=== PATIENT | male | born 1965 | race Hispanic/Latino ===

== ENCOUNTER 2018-11-24 12:42 | Inpatient (IN) | payer SELFPAY ==
[~2018-11-24] VITALS: Ht 170.2 cm; Wt 83.7 kg
[2018-11-24] VITALS (7 sets, daily range): BP systolic 124–152; BP diastolic 81–97
[2018-11-24] MEDS ORDERED: PANTOPRAZOLE 40 MG 10ML VIAL IV ONE (12:47)
[2018-11-24] MEDS ORDERED: ONDANSETRON HCL INJ 2MG/ML 2ML 2 MG/ML VIAL IV ONE (12:47)
[2018-11-24] MEDS ORDERED: SODIUM CHLORIDE 0.9% 1000ML 1,000 ML IV ONE ×2 (13:00→14:45)
[2018-11-24 13:18] LABS: BASOPHILS % 0.2 % (0.0-1.0); HEMOGLOBIN 8.8 g/dL (14.0-18.0); LYMPHOCYTES # (AUTO) 0.5 (1.0-3.2); LYMPHOCYTES % 5.1 % (18.0-39.1); MEAN CORPUSCULAR HEMOGLOBIN 27.3 pg (28-32); MEAN CORPUSCULAR HGB CONC 33.8 g/dL (31-35); MEAN CORPUSCULAR VOLUME 80.7 fL (81-99); MONOCYTES # (AUTO) 0.5 (0.2-0.8); MONOCYTES % 5.1 % (4.4-11.3); NEUTROPHILS # (AUTO) 8.2 (2.1-6.9); NEUTROPHILS % 88.7 % (38.7-80.0); PLATELET COUNT 123 x10e3/uL (140-360); RED BLOOD COUNT 3.22 x10e6/uL (4.3-5.7)
[2018-11-24 13:30] LABS: INR 1.13
[2018-11-24 13:31] LABS: PARTIAL THROMBOPLASTIN TIME 24.1 seconds (23.8-35.5)
[2018-11-24 13:40] LABS: ALANINE AMINOTRANSFERASE 34 IU/L (0-55); ALBUMIN 2.8 g/dL (3.5-5.0); ALBUMIN/GLOBULIN RATIO 0.9 (0.8-2.0); ALKALINE PHOSPHATASE 64 IU/L (40-150); ANION GAP 17.5 mmol/L (8-16); BLOOD UREA NITROGEN 33 mg/dL (7-26); BUN/CREATININE RATIO 42 (6-25); CARBON DIOXIDE 24 mmol/L (22-29); CHLORIDE 99 mmol/L (98-107); CREATINE KINASE 218 IU/L (30-200); CREATININE, SERUM 0.79 mg/dL (0.72-1.25); EST GLOMERULAR FILTRATION RATE > 60 ML/MIN (60-); GLUCOSE 177 mg/dL (74-118); POTASSIUM 3.5 mmol/L (3.5-5.1); SODIUM 137 mmol/L (136-145)
--- NOTE | 2018-11-24 13:47 | Diagnostic Imaging Report ---
Chest, 1 view, 11/24/2018. History: Nausea and weakness. Comparison: None available. Findings: The cardiomediastinal silhouette and pulmonary vasculature are within normal limits for a portable exam. There is no focal consolidation or pleural effusion. There are no acute osseous or soft tissue abnormalities. Impression: No acute cardiopulmonary abnormality. Signed by: Stiven Loomis on 11/24/2018 1:44 PM
[2018-11-24] MEDS ORDERED: SODIUM CHLORIDE 0.9% 50ML 50 ML ONE (14:19)
[2018-11-24] MEDS ORDERED: IOPAMIDOL 370 MG/ML 200 ML INFUS..BTL INJ ONE (14:19)
[2018-11-24] MEDS ORDERED: OCTREOTIDE ACETATE 500 MCG in SODIUM CHLORIDE 0.9% 500ML 1 ML IV SCH (14:45)
[2018-11-24] MEDS ORDERED: OCTREOTIDE ACETATE 0.05 MG/ML AMP IV ONE (14:45)
[2018-11-24] MEDS ORDERED: PANTOPRAZOLE INJ 80 MG in SODIUM CHLORIDE 0.9% 100 ML IV SCH (14:45)
[2018-11-24] MEDS ORDERED: THIAMINE HCL INJ 100 MG/ML 2ML VIAL IV ONE (15:15)
[2018-11-24] MEDS ORDERED: LORAZEPAM INJ 2 MG/ML VIAL IV ONE (15:15)
[2018-11-24] MEDS ORDERED: METOCLOPRAMIDE HCL 10 MG/2ML VIAL IV ONE (15:15)
[2018-11-24] MEDS: OCTREOTIDE ACETATE 500 MCG in SODIUM CHLORIDE 0.9% 250ML 249 ML IV SCH (15:30)
--- NOTE | 2018-11-24 15:40 | Diagnostic Imaging Report ---
CT of the abdomen and pelvis, with contrast, 11/24/2018. History: Weakness, nausea, GI bleed. Comparison: None available. Technique: Multidetector CT scanning of the abdomen and pelvis was performed from the level of the lung bases to the inferior pubic rami after intravenous administration of contrast. Coronal and sagittal multiplanar reformations were obtained. RADIATION DOSE: Total DLP: 478 mGy*cm Dose modulation, iterative reconstruction, and/or weight based adjustment of the mA/kV was utilized to reduce the radiation dose to as low as reasonably achievable. Discussion: LUNG BASES: There is bilateral dependent atelectasis. ABDOMEN: There is diffuse low-density of the liver with focal fatty sparing adjacent to the gallbladder. The liver is enlarged measuring over 19 cm in length. Multiple small stones are present within both kidneys measuring up to 3 mm on the left and 4 mm on the right. There is no evidence of hydronephrosis or perinephric fat stranding. The gallbladder, biliary tree, spleen, pancreas, adrenal glands, and kidneys are normal. The hepatic vein, portal vein, and splenic vein are patent. The abdominal aorta is within normal limits for size. The stomach and small bowel are unremarkable. There is mild circumferential wall thickening versus underdistention of a segment of the mid ascending colon. Remaining colon is unremarkable. The appendix is visualized and is normal. There is no evidence of adenopathy or free fluid. PELVIS: The bladder, prostate, and seminal vesicles are normal in appearance. A fat-containing left inguinal hernia is present. There is no evidence of free fluid or adenopathy. BONES AND SOFT TISSUES: Degenerative changes are present throughout the lumbar spine without evidence of lytic or sclerotic lesion. There is bilateral L5 spondylolysis without evidence of spondylolisthesis. IMPRESSION: 1. Hepatomegaly with diffuse fatty infiltration of the liver, but no focal hepatic abnormality. 2. Segment of ascending colon wall thickening versus nondistention. Inflammatory/infectious colitis cannot be excluded. Follow-up scan with rectal contrast may be considered for further evaluation. 3. Multiple small nonobstructing bilateral renal calculi. Signed by: Stiven Loomis on 11/24/2018 3:36 PM
[2018-11-24] MEDS: PANTOPRAZOL 40MG/SOD CHL 0.9% 50 ML IV SCH ×2 (16:07→20:29)
[2018-11-24] MEDS ORDERED: PROPRANOLOL HCL 1 MG/ML VIAL INJ ONE (16:15)
[2018-11-24] MEDS ORDERED: SODIUM CHLORIDE FLUSH 10 ML SYR INJ PRN (16:15)
--- OUTSIDE RECORDS SUMMARY | 2018-11-24 16:17 | XMS REPORT ---
Author Author [facility] Address Unknown Phone Unavailable Care Team Providers Care [employer] [facility] [employer] [facility] Attendant Name Role Phone Roxanna MARCIAL Unavailable Unavailable Problems This patient has no known problems. Allergies, Adverse Reactions, Alerts This patient has no known allergies or adverse reactions. Medications This patient has no known medications. Results Test Description Test Time Test Comments Text Results Atomic Results Result Comments CT ABDOMEN/PELVIS W 2018-11-24 15:28:00 [place] [address] Patient Name: SATINDER DC MR #: [id number] : 1965 Age/Sex: 53/M Req #: [id number] Adm Physician: Ordered by: WILFREDO MARCIAL MD Report #: [id number] Location: ER Room/Bed: Procedure: [id number] CT/CT ABDOMEN/PELVIS W Exam Date: Exam Time: REPORT STATUS: Signed CT of the abdomen and pelvis, with contrast, 11/24/2018. History: Weakness, nausea, GI bleed. Comparison: None available. Technique: Multidetector CT scanning of the abdomen and pelvis was performed from the level of the lung bases to the inferior pubic rami after intravenous administration of contrast. Coronal and sagittal multiplanar reformations were obtained. RADIATION DOSE: Total DLP: 478 mGy*cm Dose modulation, iterative reconstruction, and/or weight based adjustment of the mA/kV was utilized to reduce the radiation dose to as low as reasonably achievable. Discussion: LUNG BASES: There is bilateral dependent atelectasis. ABDOMEN: There is diffuse low-density of the liver with focal fatty sparing adjacent to the gallbladder. The liver is enlarged measuring over 19 cm in length. Multiple small stones are present within both kidneys measuring up to 3 mm on the left and 4 mm on the right. There is no evidence of hydronephrosis or perinephric fat stranding. The gallbladder, biliary tree, spleen, pancreas, adrenal glands, and kidneys are normal. The hepatic vein, portal vein, and splenic vein are patent. The abdominal aorta is within normal limits for size. The stomach and small bowel are unremarkable. There is mild circumferential wall thickening versus underdistention of a segment of the mid ascending colon. Remaining colon is unremarkable. The appendix is visualized and is normal. There is no evidence of adenopathy or free fluid. PELVIS: The bladder, prostate, and seminal vesicles are normal in appearance. A fat-containing left inguinal hernia is present. There is no evidence of free fluid or adenopathy. BONES AND SOFT TISSUES: Degenerative changes are present throughout the lumbar spine without evidence of lytic or sclerotic lesion. There is bilateral L5 spondylolysis without evidence of spondylolisthesis. IMPRESSION: 1. Hepatomegaly with diffuse fatty infiltration of the liver, but no focal hepatic abnormality. 2. Segment of ascending colon wall thickening versus nondistention. Inflammatory/infectious colitis cannot be excluded. Follow-up scan with rectal contrast may be considered for further evaluation. 3. Multiple small nonobstructing bilateral renal calculi. Signed by: Serena Loomis on 11/24/2018 3:36 PM Dictated By: SERENA LOOMIS MD [id number] Transcribed By: PREETI on 11/24/18 1536 COPY TO: WILFREDO MARCIAL MD CHEST SINGLE (PORTABLE) 2018-11-24 13:44:00 [place] [address] Patient Name: SATINDER DC MR #: [id number] : 1965 Age/Sex: 53/M Req #: [id number] Adm Physician: Ordered by: WILFREDO MARCIAL MD Report #: [id number] Location: ER Room/Bed: Procedure: [id number] DX/CHEST SINGLE (PORTABLE) Exam Date: Exam Time: REPORT STATUS: Signed Chest, 1 view, 11/24/2018. History: Nausea and wea kness. Comparison: None available. Findings: The cardiomediastinal silhouette and pulmonary vasculature are within normal limits for a portable exam. There is no focal consolidation or pleural effusion. There are no acute osseous or soft tissue abnormalities. Impression: No acute cardiopulmonary abnormality. Signed by: Serena Loomis on 11/24/2018 1:44 PM Dictated By: SERENA LOOMIS MD 1344 Transcribed By: PREETI on 11/24/18 1349 COPY TO: WILFREDO MARCIAL MD
[2018-11-24 16:38] LABS: BILIRUBIN,URINE NEGATIVE (NEGATIVE); CLARITY,URINE CLEAR (CLEAR); COLOR,URINE YELLOW (YELLOW); KETONES,URINE TRACE (NEGATIVE); LEUKOCYTE ESTERASE ,URINE NEGATIVE (NEGATIVE); NITRITE,URINE NEGATIVE (NEGATIVE); PROTEIN,URINE DIPSTICK NEGATIVE (NEGATIVE); URINE UROBILINOGEN 0.2 mg/dL (0.2 - 1)
[2018-11-24 16:44] LABS: BACTERIA,URINE RARE /HPF; HYALINE CASTS 0-1 (0-1)
[2018-11-24] MEDS ORDERED: LABETALOL HCL 5 MG/ML 20ML VIAL IV ONE (16:48)
[2018-11-24] MEDS ORDERED: LABETALOL HCL 20 ML ONE (16:52)
[2018-11-24 17:06] LABS: AMPHETAMINES SCREEN,URINE NEGATIVE (NEGATIVE); BENZODIAZEPINES SCREEN,URINE NEGATIVE (NEGATIVE); PHENCYCLIDINE SCREEN,URINE NEGATIVE (NEGATIVE)
[2018-11-24] MEDS ORDERED: CLONIDINE HCL 0.2 MG TAB PO ONE (18:00)
[2018-11-24] MEDS: SODIUM CHLORIDE 0.9% 1000ML 1,000 ML IV SCH (18:39)
[2018-11-24] MEDS: METOCLOPRAMIDE HCL 10 MG/2ML VIAL IV SCH (18:40)
[2018-11-24] MEDS: LORAZEPAM INJ 2 MG/ML VIAL IV PRN (18:55)
[2018-11-24] MEDS ORDERED: DEXTROSE 50% SYRINGE 50 ML IV PRN (20:00)
[2018-11-25] VITALS (26 sets, daily range): BP systolic 109–186; BP diastolic 72–110
[2018-11-25] MEDS: SODIUM CHLORIDE 0.9% 1000ML 1,000 ML IV SCH ×3 (00:10→16:44)
[2018-11-25] MEDS: METOCLOPRAMIDE HCL 10 MG/2ML VIAL IV SCH ×5 (00:16→23:53)
[2018-11-25] MEDS: PANTOPRAZOL 40MG/SOD CHL 0.9% 50 ML IV SCH ×5 (01:47→21:06)
[2018-11-25] MEDS: OCTREOTIDE ACETATE 500 MCG in SODIUM CHLORIDE 0.9% 250ML 249 ML IV SCH ×3 (02:21→19:55)
[2018-11-25] MEDS: LORAZEPAM INJ 2 MG/ML VIAL IV PRN ×2 (04:36→21:05)
--- NOTE | 2018-11-25 04:51 | Consultation ---
DATE OF CONSULTATION: 11/24/2018 CONSULTING PHYSICIAN: Tim Fernández M.D. REASON FOR CONSULTATION: 1. Alcohol intoxication. 2. Risk of alcohol withdrawal. 3. Trivial rectal bleeding. HISTORY OF PRESENTING ILLNESS: A 53 years old male, who has alcohol dependence. I cannot derive any history from him. Currently, the patient is quite incoherent, drowsy, and lethargic. He is in ICU. He got admitted with alcohol intoxication. Alcohol level was found quite elevated. CT of the abdomen showed hepatomegaly with diffuse fatty infiltration, and segment of ascending colon wall thickening versus nondistention. Some trivial rectal bleeding was also reported. The patient's hemoglobin was noted 8.8. Liver enzymes were normal. GI has been consulted to assist in his management. REVIEW OF SYSTEMS: Unobtainable. PAST MEDICAL HISTORY: Alcohol dependence. PAST SURGICAL HISTORY: Unknown. FAMILY HISTORY: Unknown. SOCIAL HISTORY: Alcohol dependence, not clear whether he is a smoker. HOME MEDICATIONS: None. INPATIENT MEDICATIONS: Reviewed as per JUN. PHYSICAL EXAMINATION: VITAL SIGNS: Temperature 97.8, pulse 96, respirations 18, blood pressure 106/67, and oxygen saturation 100% on room air. GENERAL: Not in any acute distress. Drowsy, lethargic. HEENT: Oral mucosa is moist. Anicteric sclerae. CVS: S1, S2 regular. LUNGS: Bilaterally grossly clear. ABDOMEN: Obese, soft, nondistended, and nontender. No palpable mass or hernia, no palpable hepatosplenomegaly. No shifting dullness. Positive bowel sounds. EXTREMITIES: Warm. Trace bilateral leg edema. LABORATORY DATA: Labs and imaging studies reviewed. IMPRESSION: Alcoholic liver disease, he might be having underlying liver cirrhosis. As platelet count is low, this could be due to underlying portal hypertension. PLAN: Continue present management with IV fluid, supportive care, thiamine, folate, consider banana bag. Complete cessation from alcohol, he should be counseled for alcohol. See the alcohol physician prior to discharge. Rectal bleeding is trivial. I do not think that he is having any active GI bleed. Trivial rectal bleeding could be due to underlying hemorrhoids. I will continue to monitor him clinically. I thank Dr. Fernández for allowing me to participate in the care of this patient. Champ Ali, MD SA/KARLIE /[id number]
[2018-11-25] MEDS: INSULIN REGULAR, HUMAN 100 UNIT/1 ML 3ML VIAL SQ SCH ×5 (05:55→23:44)
[2018-11-25 06:08] LABS: BASOPHILS % 0.5 % (0.0-1.0); EOSINOPHILS % 0.1 % (0.0-6.0); HEMATOCRIT 23.1 % (38.2-49.6); HEMOGLOBIN 7.6 g/dL (14.0-18.0); MEAN CORPUSCULAR HEMOGLOBIN 27.6 pg (28-32); MEAN CORPUSCULAR HGB CONC 32.9 g/dL (31-35); MONOCYTES # (AUTO) 0.7 (0.2-0.8); MONOCYTES % 8.9 % (4.4-11.3); NEUTROPHILS # (AUTO) 6.1 (2.1-6.9); PLATELET COUNT 105 x10e3/uL (140-360); RED BLOOD COUNT 2.75 x10e6/uL (4.3-5.7); RED CELL DISTRIBUTION WIDTH 15.9 % (11.7-14.4)
[2018-11-25 06:53] LABS: INR 1.05; PROTHROMBIN TIME 14.2 seconds (11.9-14.5)
[2018-11-25] MEDS: HYDRALAZINE HCL 20 MG/ML VIAL IV PRN ×2 (07:40→18:07)
[2018-11-25] MEDS: METRONIDAZOLE 500MG/NS 100ML 100 ML IV SCH ×3 (08:40→23:53)
[2018-11-25] MEDS: FOLIC ACID 1 MG TAB PO SCH (08:40)
[2018-11-25] MEDS: THIAMINE HCL INJ 100 MG/ML 2ML VIAL IV SCH (08:40)
[2018-11-25 12:26] LABS: BASOPHILS % 0.4 % (0.0-1.0); EOSINOPHILS % 0.4 % (0.0-6.0); HEMATOCRIT 22.8 % (38.2-49.6); HEMOGLOBIN 7.5 g/dL (14.0-18.0); LYMPHOCYTES # (AUTO) 1.1 (1.0-3.2); LYMPHOCYTES % 14.9 % (18.0-39.1); MEAN CORPUSCULAR HEMOGLOBIN 27.8 pg (28-32); MEAN CORPUSCULAR HGB CONC 32.9 g/dL (31-35); MEAN CORPUSCULAR VOLUME 84.4 fL (81-99); MONOCYTES # (AUTO) 0.6 (0.2-0.8); MONOCYTES % 8.5 % (4.4-11.3); NEUTROPHILS # (AUTO) 5.5 (2.1-6.9); NEUTROPHILS % 75.1 % (38.7-80.0); PLATELET COUNT 101 x10e3/uL (140-360); RED CELL DISTRIBUTION WIDTH 15.9 % (11.7-14.4)
[2018-11-25] MEDS: LABETALOL HCL 5 MG/ML 20ML VIAL IV PRN (14:33)
[2018-11-25 19:50] LABS: BASOPHILS % 0.2 % (0.0-1.0); EOSINOPHILS % 0.5 % (0.0-6.0); HEMATOCRIT 22.6 % (38.2-49.6); HEMOGLOBIN 7.4 g/dL (14.0-18.0); LYMPHOCYTES # (AUTO) 0.9 (1.0-3.2); LYMPHOCYTES % 14.6 % (18.0-39.1); MEAN CORPUSCULAR HEMOGLOBIN 27.6 pg (28-32); MEAN CORPUSCULAR HGB CONC 32.7 g/dL (31-35); MEAN CORPUSCULAR VOLUME 84.3 fL (81-99); MONOCYTES # (AUTO) 0.5 (0.2-0.8); MONOCYTES % 8.4 % (4.4-11.3); NEUTROPHILS # (AUTO) 4.9 (2.1-6.9); NEUTROPHILS % 75.8 % (38.7-80.0); PLATELET COUNT 102 x10e3/uL (140-360); RED BLOOD COUNT 2.68 x10e6/uL (4.3-5.7); RED CELL DISTRIBUTION WIDTH 15.6 % (11.7-14.4)
[2018-11-26] VITALS (16 sets, daily range): BP systolic 120–169; BP diastolic 87–106
[2018-11-26] MEDS: LABETALOL HCL 5 MG/ML 20ML VIAL IV PRN (03:10)
[2018-11-26] MEDS: LORAZEPAM INJ 2 MG/ML VIAL IV PRN (03:10)
[2018-11-26] MEDS: PANTOPRAZOL 40MG/SOD CHL 0.9% 50 ML IV SCH ×5 (03:37→20:11)
[2018-11-26] MEDS: SODIUM CHLORIDE 0.9% 1000ML 1,000 ML IV SCH ×3 (03:37→16:06)
[2018-11-26 05:11] LABS: BASOPHILS % 0.1 % (0.0-1.0); EOSINOPHILS # (AUTO) 0.1 (0.0-0.4); EOSINOPHILS % 0.9 % (0.0-6.0); LYMPHOCYTES # (AUTO) 1.1 (1.0-3.2); LYMPHOCYTES % 15.6 % (18.0-39.1); MEAN CORPUSCULAR HEMOGLOBIN 28.2 pg (28-32); MEAN CORPUSCULAR HGB CONC 32.9 g/dL (31-35); MEAN CORPUSCULAR VOLUME 85.7 fL (81-99); MONOCYTES # (AUTO) 0.6 (0.2-0.8); NEUTROPHILS # (AUTO) 5.2 (2.1-6.9); NEUTROPHILS % 74.7 % (38.7-80.0); PLATELET COUNT 97 x10e3/uL (140-360); RED BLOOD COUNT 2.45 x10e6/uL (4.3-5.7); RED CELL DISTRIBUTION WIDTH 15.5 % (11.7-14.4)
[2018-11-26 05:16] LABS: HEMOGLOBIN 6.9 g/dL (14.0-18.0)
[2018-11-26] MEDS ORDERED: SODIUM CHLORIDE 0.9% 250ML 250 ML IV ONE (05:30)
[2018-11-26] MEDS: INSULIN REGULAR, HUMAN 100 UNIT/1 ML 3ML VIAL SQ SCH ×3 (05:37→18:35)
[2018-11-26] MEDS: METOCLOPRAMIDE HCL 10 MG/2ML VIAL IV SCH ×3 (05:45→18:23)
[2018-11-26] MEDS: CHLORDIAZEPOXIDE HCL 25 MG CAP PO PRN ×2 (05:50→20:11)
[2018-11-26] MEDS: OCTREOTIDE ACETATE 500 MCG in SODIUM CHLORIDE 0.9% 250ML 249 ML IV SCH ×2 (06:52→16:20)
[2018-11-26] MEDS: FOLIC ACID 1 MG TAB PO SCH (09:00)
[2018-11-26] MEDS: METRONIDAZOLE 500MG/NS 100ML 100 ML IV SCH ×2 (09:00→18:23)
[2018-11-26] MEDS: THIAMINE HCL INJ 100 MG/ML 2ML VIAL IV SCH (09:00)
[2018-11-26] MEDS: MULTIVITAMINS- 12 INJECTION 10 ML, FOLIC ACID MDV 5 MG, THIAMINE HCL INJ 100 MG in SODI... IV SCH ×2 (10:00→20:11)
[2018-11-26 12:49] LABS: BASOPHILS % 0.5 % (0.0-1.0); EOSINOPHILS # (AUTO) 0.1 (0.0-0.4); EOSINOPHILS % 0.9 % (0.0-6.0); HEMATOCRIT 23.8 % (38.2-49.6); HEMOGLOBIN 7.9 g/dL (14.0-18.0); LYMPHOCYTES # (AUTO) 0.9 (1.0-3.2); LYMPHOCYTES % 13.1 % (18.0-39.1); MEAN CORPUSCULAR HEMOGLOBIN 27.4 pg (28-32); MEAN CORPUSCULAR HGB CONC 33.2 g/dL (31-35); MEAN CORPUSCULAR VOLUME 82.6 fL (81-99); MONOCYTES # (AUTO) 0.6 (0.2-0.8); MONOCYTES % 9.5 % (4.4-11.3); NEUTROPHILS % 75.4 % (38.7-80.0); PLATELET COUNT 105 x10e3/uL (140-360); RED BLOOD COUNT 2.88 x10e6/uL (4.3-5.7); RED CELL DISTRIBUTION WIDTH 15.5 % (11.7-14.4)
[2018-11-26 18:54] LABS: BASOPHILS % 0.5 % (0.0-1.0); EOSINOPHILS # (AUTO) 0.1 (0.0-0.4); EOSINOPHILS % 0.8 % (0.0-6.0); HEMATOCRIT 25.6 % (38.2-49.6); HEMOGLOBIN 8.7 g/dL (14.0-18.0); LYMPHOCYTES % 12.6 % (18.0-39.1); MEAN CORPUSCULAR HEMOGLOBIN 28.2 pg (28-32); MEAN CORPUSCULAR VOLUME 83.1 fL (81-99); MONOCYTES # (AUTO) 0.5 (0.2-0.8); MONOCYTES % 7.1 % (4.4-11.3); NEUTROPHILS # (AUTO) 5.9 (2.1-6.9); NEUTROPHILS % 78.2 % (38.7-80.0); PLATELET COUNT 120 x10e3/uL (140-360); RED BLOOD COUNT 3.08 x10e6/uL (4.3-5.7); RED CELL DISTRIBUTION WIDTH 15.7 % (11.7-14.4)
[2018-11-26] MEDS: CEFTRIAXONE SOD 1 GM/NS 50 ML 50 ML IV SCH (22:01)
--- NOTE | 2018-11-27 00:31 | Progress Note ---
DATE: 11/26/2018 SUBJECTIVE: The patient has had several liquidy, tarry stool. Tolerating clear liquid diet. REVIEW OF SYSTEMS: GENERAL: No fever or chills. CVS: No chest pain or palpitation. RESPIRATORY: No cough or expectoration. MEDICATIONS: Reviewed in the patient's MAR. PHYSICAL EXAMINATION: VITAL SIGNS: Temperature 98.8, pulse 74, respiration 21, blood pressure 165/106 to 155/100, oxygen saturation 99% on room air. GENERAL: Appears to be anxious. HEENT: Oral mucosa is moist. Anicteric sclerae. ABDOMEN: Soft, nondistended, and nontender. No palpable mass or hernia. Positive bowel sounds. EXTREMITIES: Warm. No leg edema. LABORATORY DATA: WBC 7.59, hemoglobin dropped to 6.9 from 7.9, received 1 unit of packed red blood cell with which hemoglobin has come up to 8.7, hematocrit 25.6, MCV 83.1, and platelet count 120. IMPRESSION: Black tarry stool without any karri GI bleeding, this could be likely due to underlying portal hypertensive gastropathy. I do not suspect any karri upper GI bleeding. The patient is maintaining good blood pressure. PLAN: Continue present medical management, discontinue Protonix IV infusion, switch it with Protonix 40 mg IV b.i.d. Add antibiotic, Rocephin for five days. Continue Octreotide infusion for another 24 hours. Continue present medical management and I will continue to follow him. Champ Escoto MD SA/KARLIE /[id number]
[2018-11-27] MEDS: METRONIDAZOLE 500MG/NS 100ML 100 ML IV SCH ×3 (00:44→16:55)
[2018-11-27 01:04] LABS: HEMATOCRIT 24.5 % (38.2-49.6); HEMOGLOBIN 8.3 g/dL (14.0-18.0)
[2018-11-27] MEDS: OCTREOTIDE ACETATE 500 MCG in SODIUM CHLORIDE 0.9% 250ML 249 ML IV SCH ×3 (01:12→20:30)
[2018-11-27] MEDS: MULTIVITAMINS- 12 INJECTION 10 ML, FOLIC ACID MDV 5 MG, THIAMINE HCL INJ 100 MG in SODI... IV SCH (05:05)
[2018-11-27 05:28] LABS: BASOPHILS % 0.5 % (0.0-1.0); EOSINOPHILS # (AUTO) 0.1 (0.0-0.4); EOSINOPHILS % 1.2 % (0.0-6.0); HEMATOCRIT 27.4 % (38.2-49.6); LYMPHOCYTES # (AUTO) 1.7 (1.0-3.2); LYMPHOCYTES % 21.6 % (18.0-39.1); MEAN CORPUSCULAR HEMOGLOBIN 27.6 pg (28-32); MEAN CORPUSCULAR HGB CONC 32.8 g/dL (31-35); MONOCYTES # (AUTO) 0.7 (0.2-0.8); MONOCYTES % 8.3 % (4.4-11.3); NEUTROPHILS # (AUTO) 5.5 (2.1-6.9); NEUTROPHILS % 67.8 % (38.7-80.0); PLATELET COUNT 137 x10e3/uL (140-360); RED BLOOD COUNT 3.26 x10e6/uL (4.3-5.7); RED CELL DISTRIBUTION WIDTH 15.5 % (11.7-14.4)
--- NOTE | 2018-11-27 05:58 | Progress Note ---
DATE: 11/27/2018 HISTORY OF PRESENT ILLNESS: The patient is still in the ICU, doing better. His hemoglobin improved after 1 unit of transfusion. 6.9, currently it is 8.3. He seems to be more relaxed. OBJECTIVE: VITAL SIGNS: Temperature 98.8, pulse 74, blood pressure 165/106, sats 99%. GENERAL: No apparent distress. CARDIOVASCULAR: Regular rate and rhythm. LUNGS: Clear to auscultation bilaterally. ABDOMEN: Soft. Good bowel sounds. No peritoneal signs. EXTREMITIES: No clubbing or cyanosis. NEUROLOGIC: Nonfocal. ASSESSMENT AND PLAN: 1. Gastrointestinal bleed and colitis. Continue with current care per GI. 2. Anemia. Continue to monitor. 3. Hypertension. Continue with his medication. 4. Diabetes. Continue with medication. 5. History of alcohol abuse. Consider overall banana bag and benzodiazepines as needed. Please see hospital chart for full details. MD DONALD Quinones/KARLIE /[id number]
[2018-11-27] MEDS: INSULIN REGULAR, HUMAN 100 UNIT/1 ML 3ML VIAL SQ SCH ×4 (06:00→15:44)
[2018-11-27] MEDS: METOCLOPRAMIDE HCL 10 MG/2ML VIAL IV SCH ×4 (06:11→16:55)
[2018-11-27 06:15] VITALS: BP 168/100
[2018-11-27 07:38] VITALS: BP 165/105
[2018-11-27 07:57] VITALS: BP 165/105
[2018-11-27] MEDS: FOLIC ACID 1 MG TAB PO SCH (08:45)
[2018-11-27] MEDS: THIAMINE HCL INJ 100 MG/ML 2ML VIAL IV SCH (08:45)
[2018-11-27] MEDS: PANTOPRAZOLE 40 MG 10ML VIAL IV SCH ×2 (08:45→20:57)
[2018-11-27 12:12] VITALS: BP 169/52
[2018-11-27 12:29] LABS: BASOPHILS % 0.3 % (0.0-1.0); EOSINOPHILS # (AUTO) 0.1 (0.0-0.4); EOSINOPHILS % 0.9 % (0.0-6.0); HEMATOCRIT 25.7 % (38.2-49.6); HEMOGLOBIN 8.6 g/dL (14.0-18.0); LYMPHOCYTES % 15.7 % (18.0-39.1); MEAN CORPUSCULAR HEMOGLOBIN 28.2 pg (28-32); MEAN CORPUSCULAR HGB CONC 33.5 g/dL (31-35); MEAN CORPUSCULAR VOLUME 84.3 fL (81-99); MONOCYTES # (AUTO) 0.6 (0.2-0.8); MONOCYTES % 8.6 % (4.4-11.3); NEUTROPHILS # (AUTO) 4.8 (2.1-6.9); NEUTROPHILS % 73.4 % (38.7-80.0); PLATELET COUNT 119 x10e3/uL (140-360); RED BLOOD COUNT 3.05 x10e6/uL (4.3-5.7); RED CELL DISTRIBUTION WIDTH 15.6 % (11.7-14.4)
[2018-11-27 15:48] VITALS: BP 158/101
[2018-11-27 18:31] LABS: BASOPHILS % 0.3 % (0.0-1.0); EOSINOPHILS # (AUTO) 0.1 (0.0-0.4); EOSINOPHILS % 0.8 % (0.0-6.0); HEMATOCRIT 25.4 % (38.2-49.6); HEMOGLOBIN 8.4 g/dL (14.0-18.0); LYMPHOCYTES % 15.7 % (18.0-39.1); MEAN CORPUSCULAR HGB CONC 33.1 g/dL (31-35); MEAN CORPUSCULAR VOLUME 84.7 fL (81-99); MONOCYTES # (AUTO) 0.6 (0.2-0.8); MONOCYTES % 9.1 % (4.4-11.3); NEUTROPHILS # (AUTO) 4.5 (2.1-6.9); NEUTROPHILS % 72.8 % (38.7-80.0); PLATELET COUNT 129 x10e3/uL (140-360); RED CELL DISTRIBUTION WIDTH 15.7 % (11.7-14.4)
[2018-11-27 20:00] VITALS: BP 158/97
[2018-11-27] MEDS ORDERED: SODIUM CHLORIDE 0.9% 250ML 250 ML ONE (22:22)
[2018-11-27] MEDS: CEFTRIAXONE SOD 1 GM/NS 50 ML 50 ML IV SCH (22:40)
[2018-11-28] VITALS: BP 157/91
[2018-11-28] MEDS: METOCLOPRAMIDE HCL 10 MG/2ML VIAL IV SCH ×2 (00:20→05:39)
[2018-11-28] MEDS: METRONIDAZOLE 500MG/NS 100ML 100 ML IV SCH (00:20)
[2018-11-28] MEDS: INSULIN REGULAR, HUMAN 100 UNIT/1 ML 3ML VIAL SQ SCH ×2 (00:51→05:30)
[2018-11-28 04:00] VITALS: BP 141/84
[2018-11-28] MEDS: CHLORDIAZEPOXIDE HCL 25 MG CAP PO PRN (05:39)
[2018-11-28 06:09] LABS: BASOPHILS % 0.5 % (0.0-1.0); EOSINOPHILS # (AUTO) 0.1 (0.0-0.4); EOSINOPHILS % 1.4 % (0.0-6.0); HEMATOCRIT 26.2 % (38.2-49.6); HEMOGLOBIN 8.6 g/dL (14.0-18.0); LYMPHOCYTES # (AUTO) 1.6 (1.0-3.2); MEAN CORPUSCULAR HGB CONC 32.8 g/dL (31-35); MEAN CORPUSCULAR VOLUME 85.3 fL (81-99); MONOCYTES # (AUTO) 0.7 (0.2-0.8); MONOCYTES % 9.3 % (4.4-11.3); NEUTROPHILS # (AUTO) 5.3 (2.1-6.9); NEUTROPHILS % 67.8 % (38.7-80.0); PLATELET COUNT 147 x10e3/uL (140-360); RED BLOOD COUNT 3.07 x10e6/uL (4.3-5.7); RED CELL DISTRIBUTION WIDTH 16.2 % (11.7-14.4)
[2018-11-28 07:23] VITALS: BP 138/86
[2018-11-28 07:30] VITALS: BP 138/86
--- NOTE | 2018-12-07 05:51 | Discharge Summary ---
DISCHARGE DIAGNOSES: 1. Colitis. 2. Alcohol intoxication. 3. Gastrointestinal bleed. HISTORY OF PRESENT ILLNESS AND HOSPITAL COURSE: See hospital chart for full details. The patient is a gentleman, who presents with alcohol abuse. He came in with some alcohol intoxication as well as some abdominal pain, where he was noticed on CT scan to have an evidence of colitis. He also had evidence of heme-positive stools. So, he was brought and placed in the ICU, put on a banana bag as well as IV antibiotics. Likely his blood count did not really deteriorate much. He was seen by GI. He continued with medical treatment. Since the patient had no further significant decrease in his hemoglobin, he was felt that he could be have an outpatient colonoscopies and the scopes done. The patient did well throughout his hospitalization. At the time of discharge, he is really wanting to go home. His vital signs were stable. He was afebrile. He did not have further abdominal and he was discharged home with Flagyl 500 mg t.i.d. for 10 more days to complete treatment of his 10 days. His stools were back to normal per the patient's statement, and he is to follow up in 1 to 2 weeks with his PCP as well as in 1 to 2 weeks with the GI doctors. Please see hospital chart for full details. MD DONALD Quinones/KARLIE /[id number]
== END 2018-11-28 08:39 | disposition home or self-care (01) | DRG 391 ==
LOC: ER 12:42 → ERHOLD 16:14 → ICU 20:15 → MED/SURG3 11-27 06:12
PROVIDERS: ADMIT Internal Medicine; ATTEND Internal Medicine
DX: A09 Infectious gastroenteritis and colitis, unspecified (principal); K29.21 Alcoholic gastritis with bleeding; K76.6 Portal hypertension; F10.230 Alcohol dependence with withdrawal, uncomplicated; D62 Acute posthemorrhagic anemia; F10.220 Alcohol dependence with intoxication, uncomplicated; K70.30 Alcoholic cirrhosis of liver without ascites; E11.9 Type 2 diabetes mellitus without complications; I10 Essential (primary) hypertension; K31.89 Other diseases of stomach and duodenum
CPT/HCPCS: 36415; 71045; 74177; 80053; 80307; 80320; 81001; 82550; 82553; 82948; 84484; 85014; 85018; 85025; 85610; 85730; 86850; 86900; 86920; 93005; 96361; 99284; J0360; J0696; J1800; J1817; J2060; J2353; J2405; J2765; J3411; J7030; J7050; P9016; Q9967